=== PATIENT | female | born 1985 | race Caucasian/White ===

== ENCOUNTER 2016-12-02 13:04 | Emergency (ER) | payer MEDICAID ==
[~2016-12-02] VITALS: Ht 157.5 cm; Wt 60.4 kg
[2016-12-02 17:22] VITALS: BP 128/71
== END 2016-12-02 18:24 | disposition home or self-care (01) ==
LOC: ED 13:04
DX: R19.7 Diarrhea, unspecified (principal); R11.0 Nausea

== ENCOUNTER 2018-04-01 10:19 | Emergency (ER) | payer OTHER ==
[~2018-04-01] VITALS: Ht 157.5 cm; Wt 55.5 kg
[2018-04-01 10:41] VITALS: Ht 157.5 cm; Wt 55.5 kg
== END 2018-04-01 12:34 | disposition home or self-care (01) ==
LOC: ED 10:19
DX: H60.91 Unspecified otitis externa, right ear (principal); H61.21 Impacted cerumen, right ear